=== PATIENT | female | born 1950 | race Caucasian/White ===

== ENCOUNTER 2017-08-23 08:27 | Emergency (ER) | payer OTHER ==
[~2017-08-23] VITALS: Ht 152.4 cm; Wt 72.6 kg
[~2017-08-23 08:27] MED LIST: AVAPRO150 MG PO; KOMBIGLYZE XR1 EAC1 PO
[2017-08-23] MEDS ORDERED: HYDROCHLOROTHIA25 MG (09:07)
[2017-08-23] MEDS ORDERED: AMOX1TAB5 PO (12:05)
[2017-08-23] MEDS ORDERED: TUSSI PRES-B L120 M1 PO (12:05)
== END 2017-08-23 12:20 | disposition home or self-care (01) ==
LOC: ER 08:27
DX: J06.9 Acute upper respiratory infection, unspecified (principal)

== ENCOUNTER 2022-06-22 20:56 | Emergency (ER) | payer OTHER ==
[~2022-06-22] VITALS: Ht 152.4 cm; Wt 86.2 kg
[~2022-06-22 20:56] MED LIST changes: +AMOX1TAB5 PO; +HYDROCHLOROTHIA25 MG; +TUSSI PRES-B L120 M1 PO
[2022-06-22] MEDS ORDERED: GLIMEPIRIDE2 MG (21:28)
[2022-06-23] MEDS ORDERED: CEPHALEXIN500 MG PO (02:06)
[2022-06-23] MEDS ORDERED: PYRIDIUM DS200 MG PO ×2 (02:07)
== END 2022-06-23 02:14 ==
LOC: ER 20:56
DX: N39.0 Urinary tract infection, site not specified (principal); B96.89 Other specified bacterial agents as the cause of diseases classified elsewhere